=== PATIENT | male | born 1955 | race Two or more races ===

== ENCOUNTER 2018-09-23 09:13 | Day surgery (SDC) | payer MEDICAID, OTHER ==
[~2018-09-23] VITALS: Ht 180.3 cm; Wt 122.5 kg
[2018-09-23] MEDS ORDERED: fentaNYL 0.05 MG/ML VIAL ONE (12:09)
[2018-09-23] MEDS ORDERED: LIDOCAINE 2% 100 MG/5 ML UJET TP ONE (12:09)
== END 2018-09-23 13:25 | disposition home or self-care (01) ==
LOC: MOR 09:13 → MMU 09:20 → MOR 13:25
PROVIDERS: ATTEND Internal Medicine Gastroenterology
DX: Z12.11 Encounter for screening for malignant neoplasm of colon (principal); D12.3 Benign neoplasm of transverse colon; D12.9 Benign neoplasm of anus and anal canal; K57.30 Diverticulosis of large intestine without perforation or abscess without bleeding; E11.9 Type 2 diabetes mellitus without complications; F17.200 Nicotine dependence, unspecified, uncomplicated; E66.9 Obesity, unspecified; Z79.899 Other long term (current) drug therapy
CPT/HCPCS: J3010

== ENCOUNTER 2019-08-18 08:39 | Day surgery (SDC) | payer OTHER, SELFPAY ==
[~2019-08-18] VITALS: Ht 180.3 cm; Wt 117.9 kg
[2019-08-18] MEDS ORDERED: LIDOCAINE VISCOUS 2% 20 ML UDC ONE (11:29)
== END 2019-08-18 12:15 | disposition home or self-care (01) ==
LOC: MDS 08:39 → MMU 08:40 → MDS 12:15
PROVIDERS: ATTEND Internal Medicine Gastroenterology
DX: K26.9 Duodenal ulcer, unspecified as acute or chronic, without hemorrhage or perforation (principal); Z11.59 Encounter for screening for other viral diseases; B96.81 Helicobacter pylori [H. pylori] as the cause of diseases classified elsewhere; K31.89 Other diseases of stomach and duodenum; K29.80 Duodenitis without bleeding; E11.9 Type 2 diabetes mellitus without complications
CPT/HCPCS: 36415; 43239; 86677; U0003